=== PATIENT | female | born 1985 | race Caucasian/White ===

== ENCOUNTER 2016-11-03 14:46 | Emergency (ER) | payer OTHER ==
[~2016-11-03] VITALS: Ht 167.6 cm; Wt 68.0 kg
[2016-11-03 15:25] VITALS: BP 137/70
[2016-11-03 15:56] LABS: BLOOD UREA NITROGEN 9 mg/dL (7-18)
[2016-11-03 16:01] LABS: ASPARTATE AMINO TRANSFERASE 18 U/L (15-37)
== END 2016-11-03 17:03 | disposition home or self-care (01) ==
LOC: ED 16:43
DX: D25.2 Subserosal leiomyoma of uterus (principal)
CPT/HCPCS: 36415; 74020; 76830; 80053; 81001; 83690; 84702; 85025; 87086